=== PATIENT | male | born 1950 | race Caucasian/White ===

== ENCOUNTER 2018-11-08 07:12 | Inpatient (IN) | payer MEDICARE ==
[2018-11-01 11:49] LABS: BASOPHILS # (AUTO) 0.1 X10'3 (0-0.2); BASOPHILS % (AUTO) 0.9 % (0-1); EOSINOPHILS # (AUTO) 0.2 X10'3 (0-0.9); EOSINOPHILS % (AUTO) 3.9 % (0-6); LYMPHOCYTES # (AUTO) 0.6 X10'3 (1.1-4.8); MEAN CORPUSCULAR HEMOGLOBIN 31.4 PG (27.0-31.0); MEAN CORPUSCULAR HGB CONC 34.8 g/dL (33.0-36.5); MEAN CORPUSCULAR VOLUME 90.5 FL (78-98); MONOCYTES # (AUTO) 0.4 X10'3 (0-0.9); MONOCYTES % (AUTO) 6.4 % (2-12); NEUTROPHILS # (AUTO) 4.4 X10'3 (1.8-7.7); NEUTROPHILS % (AUTO) 77.8 % (42-75); PRE OP HEMATOCRIT 43.7 % (42.0-52.0); PRE OP HEMOGLOBIN 15.2 g/dL (14.0-17.9); PRE OP PLATELET COUNT 190 X10'3 (140-440); RED BLOOD COUNT 4.83 X10'6 (4.70-6.10); RED CELL DISTRIBUTION WIDTH 14.7 % (11.5-14.5)
[2018-11-01 12:02] LABS: HEMOGLOBIN A1C 6.8 % (4.5-6.2)
[2018-11-01 12:10] LABS: ALBUMIN 3.6 G/DL (3.4-5.0); ALBUMIN/GLOBULIN RATIO 0.9 (1.1-1.5); ALKALINE PHOSPHATASE 58 IU/L (46-116); BLOOD UREA NITROGEN 25 MG/DL (7-18); CALCIUM 9.2 MG/DL (8.5-10.1); CHLORIDE 104 MMOL/L (99-107); CREATININE 1.47 MG/DL (0.60-1.10); PRE OP ALT 40 U/L (30-65); PRE OP ANION GAP 10 (8-16); PRE OP AST 23 U/L (10-37); PRE OP BILIRUB, TOTAL 0.5 MG/DL (0.0-1.0); PRE OP POTASSIUM 4.1 MMOL/L (3.4-5.1); PRE OP SODIUM 140 MMOL/L (135-145); TOTAL CARBON DIOXIDE 26.1 MMOL/L (24-32); TOTAL PROTEIN 7.5 G/DL (6.4-8.2); eGFR 47 ML/MIN
[2018-11-01 12:12] LABS: PRE OP GLUCOSE 211 MG/DL (70-104)
[2018-11-08] VITALS (16 sets, daily range): BP systolic 109–155; BP diastolic 62–86
[~2018-11-08] VITALS: Ht 177.8 cm; Wt 93.8 kg
[~2018-11-08 07:12] MED LIST: ALLO300T8 PO; ATOR10TA PO; LIRA0.6P SQ; LISI-600 PO; METF750T PO; PIOG45TA5 PO; tranexamic acid inj. 900 MG in normal saline 100ml IV soln 100 ML IV ONE
[2018-11-08] MEDS ORDERED: LIDOcaine 1% (10mg/ml) 2ml vial ONE (07:31)
[2018-11-08] MEDS ORDERED: ketorolac trometh. 30mg/ml inj. ONE (07:32)
[2018-11-08] MEDS ORDERED: ROPIVAcaine 0.5% (5mg/ml) 30ml vial ONE (07:32)
[2018-11-08] MEDS ORDERED: cefazolin/dext.iso 2gm/100 ML IV ONE (08:30)
[2018-11-08] MEDS ORDERED: VANCOMYCIN INJ 1000 MG in NORMAL SALINE 250ml IV.SOLN IV ONE (08:30)
[2018-11-08] MEDS ORDERED: ringers solution, lacted 1,000 ML IV SCH ×2 (08:30→11:16)
[2018-11-08] MEDS ORDERED: tranexamic acid inj. 900 MG in normal saline 100ml IV soln 100 ML IV ONE ×2 (08:30→09:30)
[2018-11-08] MEDS ORDERED: famotidine 20mg tablet PO ONE (08:30)
[2018-11-08] MEDS ORDERED: MIDAZolam 5mg/5ml vial ONE (09:15)
[2018-11-08] MEDS ORDERED: fentaNYL/PF 50MCG/1 ML 2ML syringe ONE (09:15)
[2018-11-08] MEDS ORDERED: propofol 10mg/ml 20ml vial IV ONE (09:20)
[2018-11-08] MEDS ORDERED: ePHEDrine 50MG/ML INJ. ONE (09:20)
[2018-11-08] MEDS ORDERED: sevoflurane 250ml liquid IH ONE (09:20)
[2018-11-08] MEDS ORDERED: ROPIVAcaine 0.2%/PF PAIN PUMP 550 ML IJ SCH (11:16)
[2018-11-08] MEDS ORDERED: morphine 4 MG/ML inj SYRINge IV PRN ×2 (11:20)
[2018-11-08] MEDS ORDERED: meperidine/PF 25mg/ml syringe IV PRN ×3 (11:20)
[2018-11-08] MEDS ORDERED: ondansetron/PF 4mg/2ml inj IV PRN ×2 (11:20→11:40)
[2018-11-08] MEDS ORDERED: proCHLORperazine 10 MG/2 ml inj IV PRN (11:20)
[2018-11-08] MEDS ORDERED: HYDROmorphone inj. 0.5 MG/0.5 ML DISP.SYRIN IV PRN (11:40)
[2018-11-08] MEDS ORDERED: oxyCODONE IR 5mg (immed. release) tablet PO PRN ×2 (11:40)
[2018-11-08] MEDS ORDERED: bisacodyl 10mg suppository rectal RC PRN (11:40)
[2018-11-08] MEDS ORDERED: magnesium hydroxide 30ml (MOM) UD suspension PO PRN (11:40)
[2018-11-08] MEDS ORDERED: HYDROmorphone 1 mg/ml syringe IV PRN (11:40)
[2018-11-08] MEDS ORDERED: acetaminophen 325mg tablet PO PRN (11:40)
[2018-11-08] MEDS ORDERED: diphenhydrAMINE 25mg capsule PO PRN ×2 (11:40)
--- NOTE | 2018-11-08 11:50 | NUR ---
Received from OR via BED, accompanied by Anesthesiologist DR WEINBERG--- and report given by Anesthesiolgist. PATIENT A&OX4, DENIES PAIN, V/S WNL, NEUROVASCULAR CHECKS INTACT, 20G PIV LUHope, SCD ON . LEFT SHOULDER DRESSING W/ SLING AND ON QUE CDI
--- NOTE | 2018-11-08 12:40 | NUR ---
PATIENT A&OX4, DENIES PAIN, V/S WNL, NEUROVASCULAR CHECKS INTACT, 20G PIV LUE, SCD ON . LEFT SHOULDER DRESSING W/ SLING AND ON QUE CDI .PATIENT TAKEN TO 4015A WITH ALL BELONGINGS AND HOOKED UP TO MONITORS IN ROOM AND REPORT GIVEN TO RN WHO HAS TAKEN OVER PATIENT CARE.
[2018-11-08] MEDS ORDERED: tranexamic acid inj. 940 MG in normal saline 100ml IV soln 100 ML IV ONE (14:40)
[2018-11-08] MEDS: acetaminophen 325mg tablet PO SCH ×2 (15:05→20:02)
[2018-11-08] MEDS: potassium cl 20mEq in 1/2 NS 1,000 ML IV SCH ×2 (16:50→19:36)
[2018-11-08] MEDS: ceFAZolin 1GM/D5W- ADD-VANTAGE 50 ML IV SCH ×2 (16:50→23:43)
[2018-11-08] MEDS ORDERED: MESSAGE TO PHARMACY PO ONE (18:05)
[2018-11-08] MEDS ORDERED: dextrose ORAL solution 15 GM/59 ML bottle PO PRN ×2 (18:05)
[2018-11-08] MEDS ORDERED: glucagon, human recombinant 1mg kit SUBCUT PRN (18:05)
[2018-11-08] MEDS ORDERED: dextrose 50%-water 50ml dispensing syringe IV PRN ×2 (18:05)
--- NOTE | 2018-11-08 18:30 | NUR ---
Patient in room ORTHO 4015. I have received report from Mandi SAUL and had the opportunity to ask questions and assume patient care.
--- NOTE | 2018-11-08 18:37 | NUR ---
Problems reprioritized. Patient report given, questions answered & plan of care reviewed with Fauzia SAUL.
[2018-11-08] MEDS: insulin Lispro (HumaLOG) vial - multi-dose SQ SCH ×2 (19:38→22:00)
[2018-11-08] MEDS ORDERED: vancomycin/NS 1 GM ADD-VANTAGE 250 ML IV SCH (20:00)
[2018-11-08] MEDS ORDERED: atorvastatin 10mg tablet PO SCH (21:00)
[2018-11-08] MEDS ORDERED: pioglitazone 45mg tablet PO SCH (21:00)
[2018-11-08] MEDS ORDERED: sennosides 8.6mg tablet PO SCH (21:00)
[2018-11-08] MEDS ORDERED: lisinopril 20mg tablet PO SCH (21:00)
[2018-11-08] MEDS ORDERED: insulin glargine (Lantus) pen - multi-dose SQ SCH (21:00)
[2018-11-08] MEDS ORDERED: LIRAGLUTIDE 0.6 MG/0.1 ML PEN.INJCTR SQ SCH (21:00)
[2018-11-09 02:00] VITALS: BP 100/66
[2018-11-09] MEDS: acetaminophen 325mg tablet PO SCH ×2 (02:16→08:00)
[2018-11-09] MEDS: potassium cl 20mEq in 1/2 NS 1,000 ML IV SCH (03:57)
[2018-11-09 06:00] VITALS: BP 134/68
[2018-11-09 06:16] LABS: BASOPHILS % (AUTO) 0.1 % (0-1); EOSINOPHILS % (AUTO) 0 % (0-6); HEMATOCRIT 33.9 % (42.0-52.0); HEMOGLOBIN 11.7 g/dl (14.0-17.9); LYMPHOCYTES # (AUTO) 0.4 X10'3 (1.1-4.8); LYMPHOCYTES % (AUTO) 3.8 % (21-51); MEAN CORPUSCULAR HEMOGLOBIN 31.6 PG (27.0-31.0); MEAN CORPUSCULAR HGB CONC 34.4 g/dL (33.0-36.5); MEAN CORPUSCULAR VOLUME 91.9 FL (78-98); MEAN PLATELET VOLUME 8.4 FL (7.4-10.4); MONOCYTES # (AUTO) 0.6 X10'3 (0-0.9); NEUTROPHILS # (AUTO) 9.3 X10'3 (1.8-7.7); NEUTROPHILS % (AUTO) 90.1 % (42-75); PLATELET COUNT 162 X10'3 (140-440); RED BLOOD COUNT 3.69 X10'6 (4.70-6.10); RED CELL DISTRIBUTION WIDTH 14.6 % (11.5-14.5); WHITE BLOOD COUNT 10.3 X10'3 (4.5-11.0)
--- NOTE | 2018-11-09 06:21 | NUR ---
Problems reprioritized. Patient report given, questions answered & plan of care reviewed with Mandi SAUL.
--- NOTE | 2018-11-09 06:25 | NUR ---
Patient in room ORTHO 4015. I have received report from Fauzia SAUL and had the opportunity to ask questions and assume patient care.
[2018-11-09] MEDS ORDERED: METFORMIN 750 MG PO SCH (08:00)
[2018-11-09] MEDS ORDERED: allopurinol 300 MG tablet PO SCH (08:00)
[2018-11-09] MEDS ORDERED: aspirin 325mg tablet PO SCH (08:30)
[2018-11-09] MEDS: insulin Lispro (HumaLOG) vial - multi-dose SQ SCH (08:42)
--- NOTE | 2018-11-09 09:00 | NUR ---
Patient states he is missing his rm sling that was prescribed by Dr. Wells. He states is was brought into the operating room with him, it was in a box and he states he saw someone grab it and but it on a counter before he went under anaesthesia. When he was transferred to out floor we looked in all belongings and it was not found. I called down to recovery and OR and they said they would look for it and call back. OR charge said one of the RN's in OR put the sling on the patient. Patient stated its not his sling, as his had a stomach strap and was padded. The sling he currently is in and the standard sling from [employer] and not as described by patient.
--- NOTE | 2018-11-09 11:52 | NUR ---
Patient stable for discharge home today. All instructions given to patient and , IV out. ON-Q pump was discontinued because tubing was pulled out by accident. All belongings sent home with patient.
[2018-11-09] MEDS ORDERED: celeCOXIB 100mg capsule PO SCH (20:00)
[2018-11-10] MEDS ORDERED: acetaminophen 325mg tablet PO PRN (11:40)
== END 2018-11-09 11:30 | disposition home or self-care (01) | DRG 483 ==
LOC: PAS IN 07:12 → EDSTATUS 10:00 → ORTHO 4S 12:50 → EDSTATUS 13:30
PROVIDERS: ADMIT Orthopaedic Surgery; ATTEND Orthopaedic Surgery
PROC: 0LS40ZZ Reposition Left Upper Arm Tendon, Open Approach (ICD-10-PCS; 2018-11-08)
PROC: 3E0T3BZ Introduction of Anesthetic Agent into Peripheral Nerves and Plexi, Percutaneous Approach (ICD-10-PCS; 2018-11-08)
PROC: 0RRK00Z Replacement of Left Shoulder Joint with Reverse Ball and Socket Synthetic Substitute, Open Approach (ICD-10-PCS; principal; 2018-11-08 09:20)
DX: M19.012 Primary osteoarthritis, left shoulder (principal); D62 Acute posthemorrhagic anemia; M25.512 Pain in left shoulder; M75.122 Complete rotator cuff tear or rupture of left shoulder, not specified as traumatic; M1A.9XX0 Chronic gout, unspecified, without tophus (tophi); E11.9 Type 2 diabetes mellitus without complications; E78.5 Hyperlipidemia, unspecified; I10 Essential (primary) hypertension; Z87.891 Personal history of nicotine dependence; Z79.899 Other long term (current) drug therapy
CPT/HCPCS: 36415; 80051; 80053; 82948; 83036; 84132; 85025; 87081; 97110; 97116; 97161; A4215; A4565; A4618; A7000; C1776; G0378; J0690; J1815; J1885; J2001; J2250; J2704; J2795; J3010; J3370; J3480; J7120